=== PATIENT | male | born 1960 | race African-American/Black ===

== ENCOUNTER 2019-09-18 16:50 | Emergency (ER) | payer MEDICAID ==
[~2019-09-18] VITALS: Ht 162.6 cm; Wt 68.0 kg
[2019-09-18 20:40] VITALS: BP 129/90
== END 2019-09-18 20:42 | disposition home or self-care (01) ==
LOC: ER 16:50
DX: Z76.0 Encounter for issue of repeat prescription (principal); F41.9 Anxiety disorder, unspecified
CPT/HCPCS: 99283